=== PATIENT | female | born 1940 | race African-American/Black ===

== ENCOUNTER 2020-05-17 14:38 | Emergency (ER) | payer MEDICARE, OTHER ==
[~2020-05-17] VITALS: Ht 177.8 cm; Wt 99.0 kg
[~2020-05-17 14:38] MED LIST: ACET325T9 PO; AMLO10TA8 PO; ASA/500T PO; BUPR100T8 PO; CIPR500T PO; CYAN500T52 PO; DEPAKENE; DONE10TA7 PO; FAMO20TA5 PO; FERR325T14 PO; MAGN24003 PO; SENN1TAB62 PO; VALP250S3 PO
--- NOTE | 2020-05-17 16:03 | RAD ---
CHEST AP ONLY History: Reason: SOA / Spl. Instructions: / History: Comparison: December 06, 2019 Findings: Patchy left basilar opacity. No pleural effusion. No pneumothorax. Unchanged heart size. Postop changes left breast. Bilateral glenohumeral DJD. Impression: 1. Patchy left basilar opacity, may represent pneumonia or atelectasis. Recommend follow-up to ensure resolution. Electronically signed by: Isaac Moseley DO (05/17/2020 4:01 PM) [id number]
[2020-05-17] MEDS ORDERED: cefTRIAXone IV Push 1 GM VIAL. IVP ONE (16:45)
[2020-05-17 16:59] LABS: BILIRUBIN,URINE NEGATIVE (NEG); CLARITY,URINE CLEAR; NITRITE,URINE NEGATIVE (NEG); PH,URINE 5.5 (<5.0-8.0); PROTEIN,URINE 30 mg/dL (NEG-TRACE)
[2020-05-17 17:05] LABS: COLOR,URINE YELLOW
[2020-05-17 17:06] LABS: HYALINE CASTS, URINE MODERATE /HPF; SQUAMOUS EPITHELIAL CELL,UR MOD /LPF
[2020-05-17 17:07] LABS: BACTERIA,URINE 0 /HPF (0-FEW); WBC,URINE OCC /HPF (0-4)
[2020-05-17 17:43] LABS: BASO % 1 % (0-3); EOS % 0 % (0-3); HEMATOCRIT 36.1 % (36.0-47.0); LYMPH # 1.1 x10^3/uL (1.0-4.8); LYMPH % 21 % (24-48); MEAN CORPUSCULAR HEMOGLOBIN 28 pg (25-35); MEAN CORPUSCULAR HGB CONC 33 g/dL (31-37); MEAN CORPUSCULAR VOLUME 84 fL (79-100); MONO # 0.8 x10^3/uL (0.0-1.1); MONO % 14 % (0-9); NEUT # 3.4 x10^3/uL (1.8-7.7); NEUT % 64 % (31-73); PLATELET COUNT 195 x10^3/uL (140-400); RED CELL DISTRIBUTION WIDTH 15.3 % (11.5-14.5); WHITE BLOOD COUNT 5.3 x10^3/uL (4.0-11.0)
[2020-05-17 17:48] LABS: CALCIUM 8.2 mg/dL (8.5-10.1); CREATININE 1.3 mg/dL (0.6-1.0); GFR 47.7; POTASSIUM 4.1 mmol/L (3.5-5.1)
[2020-05-17 17:50] LABS: PROTHROMBIN TIME PATIENT 13.3 SEC (11.7-14.0)
[2020-05-17 17:54] LABS: ALBUMIN 2.9 g/dL (3.4-5.0); ALBUMIN/GLOBULIN RATIO 0.6 (1.0-1.7); TOTAL BILIRUBIN 0.5 mg/dL (0.2-1.0); TOTAL PROTEIN 7.5 g/dL (6.4-8.2)
--- NOTE | 2020-05-17 17:56 | PHYS DOC ---
Past Medical History Past Medical History: Anemia, Bipolar, Cancer, Dementia, Diabetes-Type II, GERD, Hypertension, Renal Disease Additional Past Medical Histor: CONTRACTURE, LACK OF COORDINATION, DYSPHAGIA, APHASIA, Past Surgical History: Other Additional Past Surgical Histo: LEFT MASTECTOMY Smoking Status: Never Smoker Alcohol Use: None Drug Use: None General Adult EDM: Chief Complaint: ALTERED MENTAL STATUS HPI: HPI: Patient is a 79 year old with a history of CVA, she was found leaning over in her wheelchair, acting confused. EMS were called, when they got there patient was awake alert, did not remember what happened. Patient was found to have low oxygen saturation on room air, so they put patient on 2 L oxygen and went up to 100%. There was report cases COVID19 infection at that [facility]. Patient denies any abdominal pain, no nausea vomiting. Review of Systems: Review of Systems: Constitutional: Denies fever or chills. [] Eyes: Denies change in visual acuity. [] HENT: Denies nasal congestion or sore throat. [] Respiratory: Denies cough or shortness of breath. [] Cardiovascular: Denies chest pain or edema. [] GI: Denies abdominal pain, nausea, vomiting, bloody stools or diarrhea. [] : Denies dysuria. [] Musculoskeletal: Denies back pain or joint pain. [] Integument: Denies rash. [] Neurologic: Denies headache, focal weakness or sensory changes. [] Endocrine: Denies polyuria or polydipsia. [] Lymphatic: Denies swollen glands. [] Psychiatric: Denies depression or anxiety. [] Heart Score: Risk Factors: Risk Factors: DM, Current or recent (<one month) smoker, HTN, HLP, family history of CAD, obesity. Risk Scores: Score 0 - 3: 2.5% MACE over next 6 weeks - Discharge Home Score 4 - 6: 20.3% MACE over next 6 weeks - Admit for Clinical Observation Score 7 - 10: 72.7% MACE over next 6 weeks - Early Invasive Strategies Current Medications: Current Medications Medications (Trade) Dose Ordered Sig/Ziggy Start Time Stop Time Status Last Admin Dose Admin Ceftriaxone Sodium (Rocephin) 1 gm 1X ONCE 05/17/20 16:45 05/17/20 16:46 DC Allergies: Allergies: Allergies Coded Allergies Type Severity Reaction Last Updated Verified No Known Drug Allergies 12/06/19 No Physical Exam: PE: Constitutional: Well developed, well nourished, no acute distress, non-toxic appearance. [] HENT: Normocephalic, atraumatic, bilateral external ears normal, oropharynx moist, no oral exudates, nose normal. [] Eyes: PERRLA, EOMI, conjunctiva normal, no discharge. [] Neck: Normal range of motion, no tenderness, supple, no stridor. [] Cardiovascular:Heart rate regular rhythm, no murmur [] Lungs & Thorax: Bilateral breath sounds clear to auscultation [] Abdomen: Bowel sounds normal, soft, no tenderness, no masses, no pulsatile javier s. [] Skin: Warm, dry, no erythema, no rash. [] Back: No tenderness, no CVA tenderness. [] Extremities: No tenderness, no cyanosis, no clubbing, ROM intact, no edema. [] Neurologic: Patient is awake alert, moving all extremities, she is oriented to place and person. Psychologic: Affect normal, judgement normal, mood normal. [] Current Patient Data: Labs: Laboratory Tests Test 05/17/20 16:50 05/17/20 17:28 Urine Collection Type U cath Urine Color Yellow Urine Clarity Clear Urine pH 5.5 (<5.0-8.0) Urine Specific [place] 1.025 (1.000-1.030) Urine Protein 30 mg/dL (NEG-TRACE) Urine Glucose (UA) Negative mg/dL (NEG) Urine Ketones (Stick) Trace mg/dL (NEG) Urine Blood Trace (NEG) Urine Nitrite Negative (NEG) Urine Bilirubin Negative (NEG) Urine Urobilinogen Dipstick 1.0 mg/dL (0.2 mg/dL) Urine Leukocyte Esterase Negative (NEG) Urine RBC 3-5 /HPF (0-2) Urine WBC Occ /HPF (0-4) Urine Squamous Epithelial Cells Mod /LPF Urine Bacteria 0 /HPF (0-FEW) Urine Hyaline Casts Moderate /HPF Urine Mucus Marked /LPF White Blood Count 5.3 x10^3/uL (4.0-11.0) Red Blood Count 4.30 x10^6/uL (3.50-5.40) Hemoglobin 12.0 g/dL (12.0-15.5) Hematocrit 36.1 % (36.0-47.0) Mean Corpuscular Volume 84 fL (79-100) Mean Corpuscular Hemoglobin 28 pg (25-35) Mean Corpuscular Hemoglobin Concent 33 g/dL (31-37) Red Cell Distribution Width 15.3 % (11.5-14.5) H Platelet Count 195 x10^3/uL (140-400) Neutrophils (%) (Auto) 64 % (31-73) Lymphocytes (%) (Auto) 21 % (24-48) L Monocytes (%) (Auto) 14 % (0-9) H Eosinophils (%) (Auto) 0 % (0-3) Basophils (%) (Auto) 1 % (0-3) Neutrophils # (Auto) 3.4 x10^3/uL (1.8-7.7) Lymphocytes # (Auto) 1.1 x10^3/uL (1.0-4.8) Monocytes # (Auto) 0.8 x10^3/uL (0.0-1.1) Eosinophils # (Auto) 0.0 x10^3/uL (0.0-0.7) Basophils # (Auto) 0.0 x10^3/uL (0.0-0.2) Prothrombin Time 13.3 SEC (11.7-14.0) Prothrombin Time INR 1.1 (0.8-1.1) Activated Partial Thromboplast Time 34 SEC (24-38) Sodium Level 139 mmol/L (136-145) Potassium Level 4.1 mmol/L (3.5-5.1) Chloride Level 102 mmol/L (98-107) Carbon Dioxide Level 29 mmol/L (21-32) Anion Gap 8 (6-14) Blood Urea Nitrogen 21 mg/dL (7-20) H Creatinine 1.3 mg/dL (0.6-1.0) H Estimated GFR (Cockcroft-Gault) 47.7 BUN/Creatinine Ratio 16 (6-20) Glucose Level 149 mg/dL (70-99) H Calcium Level 8.2 mg/dL (8.5-10.1) L Magnesium Level Pending Total Bilirubin Pending Aspartate Amino Transferase (AST) Pending Alanine Aminotransferase (ALT) Pending Alkaline Phosphatase Pending Total Protein Pending Albumin Pending Albumin/Globulin Ratio Pending Laboratory Tests 05/17/20 17:28 Laboratory Tests 05/17/20 17:28 Vital Signs: Vital Signs Date Time Temp Pulse Resp B/P (MAP) Pulse Ox O2 Delivery O2 Flow Rate FiO2 05/17/20 16:47 86 63 05/17/20 14:38 100.1 17 117/72 (87) Nasal Cannula 2.0 100.1 EKG: EKG: EKG was done at 1455, sinus rhythm, right bundle branch block, no ST segment elevation. Radiology/Procedures: Radiology/Procedures: [][facility] [address] [place] [address] IMAGING REPORT Signed PATIENT: SHUBHAM MISHRA ACCOUNT: [id number] : 1940 LOCATION: ER AGE: 79 SEX: F EXAM STATUS: REG ER ORD. PHYSICIAN: DELFINO KOTHARI DO REASON: SOA PROCEDURE: CHEST AP ONLY CHEST AP ONLY History: Reason: SOA / Spl. Instructions: / History: Comparison: December 06, 2019 Findings: Patchy left basilar opacity. No pleural effusion. No pneumothorax. Unchanged heart size. Postop changes left breast. Bilateral glenohumeral DJD. Impression: 1. Patchy left basilar opacity, may represent pneumonia or atelectasis. Recommend follow-up to ensure resolution. Electronically signed by: Isaac Moseley DO (05/17/2020 4:01 PM) [id number] DICTATED and SIGNED BY: ISAAC MOSELEY DO DATE: 05/17/20 1601 Course & Med Decision Making: Course & Med Decision Making Pertinent Labs and Imaging studies reviewed. (See chart for details) Patient is an 79-year-old female who was found to have pneumonia, she [facility] for Levaquin. Dragon Disclaimer: Dragon Disclaimer: This electronic medical record was generated, in whole or in part, using a voice recognition dictation system. Departure Departure Impression: Primary Impression: Pneumonia Disposition: 01 HOME, SELF-CARE Condition: STABLE Referrals: ZURI ACOSTA MD (PCP) PLEASE FOLLOW UP WITH YOUR FAMILY DOCTOR IN 2 DAYS Patient Instructions: Pneumonia, Adult Scripts Levofloxacin (LEVAQUIN) 500 Mg Tablet 1 TAB PO DAILY for 7 Days, #7 TAB 0 Refills Prov: DELFINO KOTHARI DO 05/17/20 Justicifation of Admission Dx: Justifications for Admission: Justification of Admission Dx: N/A DELFINO KOTHARI DO May 17, 2020 17:56
[2020-05-17] MEDS ORDERED: LEVO500T59 PO (18:32)
[2020-05-17 19:17] VITALS: BP 111/70
--- NOTE | 2020-05-21 10:36 | EKG ---
[facility] [address] [place] [address] Test Date: 2020-05-17 Test Time: 14:55:57 Pat Name: SHUBHAM MISHRA Department: Room: Gender: F Instructional Coach: : 1940 Requested By: DELFINO KOTHARI Order Number: [id number] Reading MD: Paul Mcclellan MD Measurements Intervals [place] Rate: 60 P: 41 FL: 152 QRS: 23 QRSD: 124 T: 8 QT: 434 QTc: 434 Interpretive Statements SINUS RHYTHM RIGHT BUNDLE BRANCH BLOCK Electronically Signed On 06-11-2020 11:34:26 CDT by Paul Mcclellan MD
== END 2020-05-17 19:28 | disposition home or self-care (01) ==
LOC: ER 14:38
DX: U07.1 COVID-19 (principal); J18.9 Pneumonia, unspecified organism; R41.0 Disorientation, unspecified; E11.9 Type 2 diabetes mellitus without complications; I10 Essential (primary) hypertension; F31.9 Bipolar disorder, unspecified; Z85.9 Personal history of malignant neoplasm, unspecified; Z98.890 Other specified postprocedural states; Z90.89 Acquired absence of other organs
CPT/HCPCS: 36415; 71045; 80053; 81001; 83605; 83735; 85025; 85610; 85730; 87040; 87205; 93005; 96374; 99285; C9803; J0696; P9612; U0003; 87077